=== PATIENT | male | born 1980 | race Caucasian/White ===

== ENCOUNTER 2016-06-04 08:55 | Emergency (ER) | payer OTHER ==
[~2016-06-04] VITALS: Ht 167.6 cm; Wt 90.6 kg
[~2016-06-04 08:55] MED LIST: AMOXICILLIN875 MG PO; ATARAX,VISTARIL25 MG PO; BACTRIM,SEPT1 TABLET PO; BACTROBAN NASAL1 G1 BOTH NARES; MOTRIN600 MG PO; NORCO 5/3251 TABLET PO; NORCO 7.5/321 TABLET PO; PREDNISONE10 M1 PO; VIBRAMYCIN100 MG PO
[2016-06-04 10:25] LABS: HEMATOCRIT 45.7 % (38.0-50.0); MCH 31.3 PG (29.0-34.0); MCHC 35.4 G/DL (30.0-36.0); MCV 88.4 FL (86-99); MEAN PLAT.VOLUME 9.3 uM^3 (9.0-12.4); PLATELET COUNT 302 K/uL (156-360); RBC DIS.WIDTH-CV 12.2 % (11.8-14.6); RBC DIS.WIDTH-SD 38.6 % (39-53); RED BLOOD COUNT 5.17 M/uL (4.00-5.50); WHITE BLOOD COUNT 7.3 K/uL (4.1-10.2)
[2016-06-04 10:34] LABS: CHLORIDE 107 mEq/L (99-109); POTASSIUM 4.5 mEq/L (3.7-5.4); SODIUM 145 mEq/L (136-147)
[2016-06-04 10:35] LABS: GLUCOSE 94 mg/dL (70-99)
[2016-06-04 10:37] LABS: ANION GAP 13 MEQ/L (2-14)
[2016-06-04 10:39] LABS: GFR ESTIMATE (CALCULATED) > 59 mL/min/
[2016-06-04 10:40] LABS: UREA NITROGEN (BUN) 5 mg/dL (9-23)
[2016-06-04 10:45] LABS: TROP-I INTERPRETATION NEGATIVE; TROPONIN-I 0.02 ng/mL (0.0-0.30)
[2016-06-04 10:50] LABS: ADD MIUA? NO; BILIRUBIN NEGATIVE; BLOOD NEGATIVE; GLUCOSE (STRIP) NEGATIVE; KETONES NEGATIVE; LEUKOCYTES NEGATIVE; NITRITE NEGATIVE; PROTEIN (STRIP) NEGATIVE; SPECIFIC GRAVITY 1.012 (1.000-1.030); UCUL ADDED? NO; UROBILINOGEN 0.2 MG/DL (0.2-1.0)
[2016-06-04 10:51] LABS: COLOR PALE STRAW ((YELLOW))
[2016-06-04] MEDS ORDERED: FLEXERIL10 MG PO (13:09)
[2016-06-04] MEDS ORDERED: LIDOCAINE700 MG TD (13:09)
[2016-06-04] MEDS ORDERED: TRAMADOL HCL50 MG PO (13:09)
[2016-06-04 14:01] VITALS: BP 125/92
== END 2016-06-04 14:03 | disposition home or self-care (01) ==
LOC: EME 08:55
DX: M54.16 Radiculopathy, lumbar region (principal); R07.9 Chest pain, unspecified; F17.200 Nicotine dependence, unspecified, uncomplicated
CPT/HCPCS: 71020; 72100; 80048; 80053; 81003; 84484; 85027; 93005; 99281; 99284; J1885; J3010